=== PATIENT | female | born 1980 | race Caucasian/White ===

== ENCOUNTER → 2021-04-25 | Outpatient (CLI) | payer OTHER ==
--- NOTE | 2021-04-25 12:00 | XR ---
EXAMINATION TYPE: XR elbow complete RT DATE OF EXAM: 04/25/2021 CLINICAL HISTORY: Lifting injury TECHNIQUE: Frontal, lateral and oblique images of the right elbow are obtained. COMPARISON: None FINDINGS: There is no acute fracture/dislocation evident in the right elbow. No abnormal fat pad si gns are seen. The overlying soft tissue appears unremarkable. IMPRESSION: There is no acute fracture or dislocation in the right elbow.
== END | disposition home or self-care (01) ==
LOC: LABWHC1 09:52
PROVIDERS: ATTEND Internal Medicine
DX: M77.11 Lateral epicondylitis, right elbow (principal); R19.7 Diarrhea, unspecified; E11.40 Type 2 diabetes mellitus with diabetic neuropathy, unspecified
CPT/HCPCS: 87045; 87046; 87324; 87328; 87329; 87798

== ENCOUNTER → 2021-06-11 | Outpatient (CLI) | payer OTHER ==
[2021-06-11 10:09] VITALS: BP 114/72; PULSE 63; RESP 16; TEMP 98.4
--- NOTE | 2021-06-11 11:13 | P.HPOB ---
History of Present Illness H&P Date: 06/11/21 Chief Complaint: The patient is here for her routine gynecologic exam and ma mmogram. This is a 41-year-old with an LMP of 05/21/2021 who is status post tubal ligation. The patient is here to establish with this office. Her last pelvic exam was in 2019. She is complaining of slight discharge during the past 4 months. She describes it as a whitish thick discharge with a slight odor. She denies any vaginal or vulvar itching. She states she was last sexually active about 6 months ago with her and she is currently in the process of getting a divorce. She is otherwise without complaints. Menstrual periods are fairly regular every month. She denies hot flashes. Review of Systems The patient has lost 100 pounds over the last year with diet and exercise. She denies respiratory, cardiac, or G.I. problems. Past Medical History Past Medical History: Diabetes Mellitus, GERD/Reflux, Hyperlipidemia, Hypertension Additional Past Medical History / Comment(s): Type 2 diabetes and chronic hypertension not requiring medication after weight loss. Seasonal ALLERGIES and overactive bladder. 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 History of Any Multi-Drug Resistant Organisms: None Reported Past Surgical History: Section, Tubal Ligation Additional Past Surgical History / Comment(s): section 2 with a tubal ligation with her second one. Past Psychological History: Anxiety, Depression Smoking Status: Never smoker Past Alcohol Use History: None Reported Past Drug Use History: None Reported Additional History: She has been since 2001 and is in the process of a divorce. 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 - Past Family History Mother Family Medical History: No Reported History Additional Family Medical History / Comment(s): Maternal grandmother had ovarian cancer and 2 maternal aunts also had ovarian cancer. Father Family Medical History: Unable to Obtain Medications and Allergies Home Medications Medication Instructions Recorded Confirmed Type Anxiety And Stress Vitamin 2 tab PO HS 06/11/21 06/11/21 History Atorvastatin [Lipitor] 20 mg PO HS 06/11/21 06/11/21 History Biotin 10,000 mcg PO DAILY 06/11/21 06/11/21 History Cetirizine HCl 10 mg PO DAILY 06/11/21 06/11/21 History Cholecalciferol [Vitamin D3 (25 25 mcg PO DAILY 06/11/21 06/11/21 History Mcg = 1000 Iu)] Gabapentin 300 mg PO TID 06/11/21 06/11/21 History Ibuprofen 600 mg PO Q8H 06/11/21 06/11/21 History Ibuprofen 800 mg PO Q8H 06/11/21 06/11/21 History Magnesium Oxide 400 mg PO DAILY 06/11/21 06/11/21 History Mv,Calcium,Min/Iron/Folic/Vitk 1 each PO DAILY 06/11/21 06/11/21 History [One-A-Day Women's Complete Tab] Oxybutynin Chloride [Oxybutynin 5 mg PO DAILY 06/11/21 06/11/21 History Chloride ER] Pantoprazole [Protonix] 40 mg PO DAILY 06/11/21 06/11/21 History Primidone [Mysoline] 50 mg PO HS 06/11/21 06/11/21 History Vortioxetine Hydrobromide 10 mg PO DAILY 06/11/21 06/11/21 History [Trintellix] traZODone HCL 50 mg PO HS 06/11/21 06/11/21 History Allergies Allergy/AdvReac Type Severity Reaction Status Date / Time diphenhydramine Allergy Rapid Unverified 06/11/21 10:10 [From Benadryl] Heart Rate morphine Allergy Swelling Unverified 06/11/21 10:10 Exam Vital Signs Temp Pulse Resp BP Pulse Ox 06/11/21 10:05 98.4 F 63 16 114/72 99 Intake and Output 06/10/21 06/11/21 06/11/21 22:59 06:59 14:59 Other: Weight 80.286 kg Height 5 feet 0 inches, weight 177 pounds, BMI 34.6. This is a well-developed well-nourished white female who is alert and oriented times 3 in no acute distress. HEENT: Within normal limits. NECK: Supple without mass or thyromegaly. CHEST AND LUNGS: Clear to auscultation. HEART: Regular rate and rhythm. BREASTS: Are without mass or discharge. AXILLARY EXAM: Negative for adenopathy. BACK: Negative for CVA tenderness. ABDOMEN: Soft, nontender, without palpable masses. PELVIC EXAM: Normal external genitalia. Cervix and vagina appear normal. There is no unusual discharge. There is no odor noted. There is no evidence of prolapse. The uterus is midposition, nongravid size and nontender. There are no palpable adnexal masses or tenderness. RECTAL EXAM: negative for mass or tenderness and is negative for occult blood. EXTREMITIES: Nontender. IMPRESSION: 1. 41-year-old female status post tubal ligation with a four-month history of vaginal discharge with no significant physical findings on exam today. Differential diagnosis will include bacterial vaginosis, GC, Chlamydia, Tawnya vaginitis or physiologic discharge. PLAN: 1. Pap smear cotest was performed. 2. Self breast awareness was discussed with the patient. We have reviewed the symptoms of inflammatory breast cancer. 3. Screening mammogram will be done today. 4. Affirm vaginitis panel testing was obtained from the vagina. GC and Chlamydia testing was obtained from the cervix. 5. Osteoporosis prevention was discussed. I have stressed the importance of adequate calcium, vitamin D and regular exercise. Recommended amounts of calcium and vitamin D were also discussed. 6. STD prevention was discussed. I have stressed the importance of limiting sexual partners. I also recommended condom use if she is sexually active. 7. She has received the [employer] Covid vaccination. 8. She was advised to return in one year for her annual well woman exam and as needed.
[2021-06-12 17:50] LABS: Gardnerella Negative (Negative); Source Vagina; Trichomonas Negative (Negative)
== END | disposition home or self-care (01) ==
LOC: WWCWWP 09:58
PROVIDERS: ATTEND Obstetrics & Gynecology
DX: Z12.31 Encounter for screening mammogram for malignant neoplasm of breast (principal); N89.8 Other specified noninflammatory disorders of vagina
CPT/HCPCS: 77067; 87480; 87491; 87510; 87591; 87660

== ENCOUNTER → 2021-08-28 | Outpatient (CLI) | payer OTHER ==
--- NOTE | 2021-08-29 15:41 | ECHOS ---
STRESS ECHOCARDIOGRAM INDICATIONS: Chest pain. BASELINE HEART RATE: 77 BASELINE BLOOD PRESSURE: 115/64 MAXIMUM HEART RATE: 157 MAXIMUM BLOOD PRESSURE: 179/49 85% MPHR: 150 100% MPHR: 177 METS: 9.5 MAXIMUM STAGE REACHED: 3 TOTAL EXERCISE TIME: 8:00 CLINICAL INFORMATION: Baseline EKG shows sinus rhythm, normal axis, normal intervals. Patient exercised on Enmanuel protocol for a total of 8 minutes, achieving 9 METS, 89% of predicted maximal heart rate, without chest pain or diagnostic ST-segment depression. Baseline echo shows normal left ventricular size, wall motion, systolic function. Post exercise there is normal hyperdynamic response of all segments of myocardium noted. CONCLUSIONS: 1. Good exercise tolerance. 2. Negative stress test by EKG criteria. 3. Negative stress echo. MMELLAL / IJN: [id number] /
== END | disposition home or self-care (01) ==
LOC: RADNMMAIN 10:00
PROVIDERS: ATTEND Internal Medicine
DX: R07.89 Other chest pain (principal)
CPT/HCPCS: 93351

== ENCOUNTER → 2022-02-11 | Outpatient (CLI) | payer OTHER ==
--- NOTE | 2022-02-11 13:04 | MR ---
EXAMINATION TYPE: MR knee RT wo con DATE OF EXAM: 02/11/2022 COMPARISON: Outside radiograph 02/04/2022 HISTORY: 41 year-old female right knee pain after fall, hx of fx foot TECHNIQUE: Multiplanar, multisequence imaging of the right knee is performed without IV contrast. FINDINGS: The ACL, PCL, MCL, and LCL complex are intact. The medial and lateral menisci are intact. Mild cartilage irregularity along the mid weightbearing aspect of the medial compartment. More modera te loss along the mid peripheral aspect of the medial compartment. Subtle underlying marrow edema luis f ng the peripheral lip of the medial tibial plateau. Additional moderate irregular cartilage fraying mid patella and lateral patellar facet. Extensor mechanism is intact but with areas of increased signal in both the quadriceps insertion and deep fibers of the proximal patellar tendon. Mild edema within the suprapatellar fat pad. Small knee joint effusion which can be physiologic. No s izable Medellin's cyst. Nonspecific anterior soft tissue swelling. Normal popliteal artery anatomy and muscle bulk. Prominent red marrow reconversion which can be seen in setting of anemia, obesity, smoking, chronic d isease. IMPRESSION: 1. Small area of moderate cartilage loss along the mid peripheral aspect of the medial compartment. S ome subtle underlying reactive marrow signal change. 2. Additional moderate irregular cartilage fraying mid patella and lateral patellar facet. 3. No cruciate/collateral ligament or meniscal tear seen. 4. Mild insertional quadriceps tendinosis and proximal patellar tendinosis. 5. Some edema within the suprapatellar fat pad is nonspecific but may be seen in the setting of fat p ad impingement syndrome. Clinically correlate.
== END | disposition home or self-care (01) ==
LOC: RADMRIMAIN 11:01
PROVIDERS: ATTEND Orthopaedic Surgery
DX: M25.561 Pain in right knee (principal)

== ENCOUNTER → 2022-03-27 | Day surgery (SDC) | payer OTHER ==
--- NOTE | 2022-03-26 13:58 | HP ---
HISTORY AND PHYSICAL REASON FOR ADMISSION: Surgery 03/27/2022 HISTORY OF PRESENT ILLNESS: Alexandra Asencio is a 41-year-old patient seen with progressive right knee pain. We discussed options for treatment. She elected to proceed with right knee arthroscopy. Consent is obtained. PAST MEDICAL HISTORY: Noncontributory. PAST SURGICAL HISTORY: section, cholecystectomy. DAILY MEDICATIONS: Ibuprofen. ALLERGIES: BENADRYL, MORPHINE. SOCIAL HISTORY: She denies tobacco use. PHYSICAL EVALUATION OF THE RIGHT KNEE: Range of motion 0-125. Mild effusion. Tenderness medial joint line. Positive medial Yang's. Ligaments stable. Hip rotation without pain. Distal neurovascular exam is intact. RADIOGRAPHS: Right knee radiographs reveal no obvious abnormality. MRI of the right knee revealed medial compartment cartilage loss and fat pad impingement syndrome. IMPRESSION: 1. Internal derangement right knee with osteochondral tear. 2. Right knee fat pad impingement. PLAN: Right knee arthroscopy with chondroplasty, partial synovectomy and debridement. MMODL / IJN: [id number] /
[~2022-03-27] MED LIST: BUPIVACAINE (PF) 0.25% 30 ML VIAL ONE; DEXAMETHASONE SOD PHOSPHATE 4 MG/ML 1 ML VIAL ONE; HYDROcodone/APAP 5-325MG 1 EACH TAB ONE; LIDOCAINE 2% INJ 20 MG/ML (2 ML VIAL) ONE; MIDAZOLAM 2 MG/2 ML VIAL ONE; ONDANSETRON 4 MG/2 ML VIAL ONE; PROPOFOL 10 MG/ML 20 ML VIAL IV ONE; SODIUM CHLORIDE 0.9% 1,000 ML BAG ONE; SODIUM CHLORIDE 0.9% 100 ML BAG ONE; ceFAZolin 1,000 MG VIAL ONE; fentaNYL (PF) 50 MCG/ML 2 ML AMP ONE
[2022-03-27 14:50] LABS: Glucose,Whole Blood 96 mg/dL (75-99)
--- NOTE | 2022-03-27 14:55 | P.OP ---
Date of Procedure: 03/27/22 Preoperative Diagnosis: Internal derangement right knee Postoperative Diagnosis: 1. Tear medial meniscus right knee 2. Reactive synovitis medial, lateral and suprapatellar compartments right knee Procedure(s) Performed: 1. Arthroscopic partial medial meniscectomy right knee 2. Arthroscopic partial synovectomy medial, lateral and suprapatellar compartments right knee Anesthesia: ROMEOA, local Surgeon: Amaduo Almaraz Estimated Blood Loss (ml): 7 Pathology: none sent Condition: stable Disposition: PACU Indications for Procedure: 41-year-old patient seen with progressive right knee pain. After having treatment options discussed, she elected to proceed with arthroscopy Operative Findings: see description of procedure Description of Procedure: Patient was taken to the operative suite. Patient underwent a general a nesthetic by the department of anesthesia. Patient was given preoperative antibiotics. The right lower extremity was placed in a well-padded arthroscopic leg holland. The right leg was prepped and draped in the normal sterile orthopedic fashion. A lateral parapatellar and suprapatellar incision was made. Trochars were inserted. Arthroscopy was initiated. Suprapatellar pouch revealed diffuse thick reactive synovitis. The patellofemoral joint appeared to articulate congruently. There was grade 1 chondromalacia with no tears present. The scope was guided into the medial gutter. No loose bodies or plica were identified. The scope was then guided into the medial compartment. A medial parapatellar incision was made. Trocar inserted followed by probe. There was a radial tear posterior medial meniscus. There were mild grade 1 chondromalacia changes of the medial femoral condyle. There was some thick reactive synovitis anteriorly. I performed a partial medial meniscectomy getting down to stable meniscal tissue. I performed a partial synovectomy decompressing reactive synovitis. The residual meniscus was stable. There was good decompression of the synovitis. Scope and probe were then guided into the intercondylar notch. Cruciates were identified, probed and found to be stable. The scope and probe were then guided into lateral compartment. Lateral meniscus was probed and was found to be stable. There was no chondromalacia involving lateral compartment. There was some reactive synovitis anteriorly. I introduced a motorized shaver and performed a partial synovectomy. The shaver was removed. There was good decompression of the synovitis. The scope was in guided back into the suprapatellar compartment. I introduced a motorized shaver into the super womack llar compartment. I performed a partial synovectomy. The shaver was removed. There was good decompression of synovitis. I took one more look around the entire knee, no residual debris. Instruments were now removed from the joint. The joint was infiltrated with .25% Marcaine. Steri-Strips were applied to the portal sites. Sterile dressings were applied. The patient was placed into a SHAHRAM hose. No tourniquet was utilized. The patient was awakened, transferred to a bed and taken to recovery stable satisfactory condition.
== END | disposition home or self-care (01) ==
LOC: OR 10:21
PROVIDERS: ATTEND Orthopaedic Surgery
DX: M23.203 Derangement of unspecified medial meniscus due to old tear or injury, right knee (principal); M65.861 Other synovitis and tenosynovitis, right lower leg; M17.10 Unilateral primary osteoarthritis, unspecified knee; K21.9 Gastro-esophageal reflux disease without esophagitis; Z79.1 Long term (current) use of non-steroidal anti-inflammatories (NSAID); Z90.49 Acquired absence of other specified parts of digestive tract; Z98.891 History of uterine scar from previous surgery; Z79.899 Other long term (current) drug therapy; Z88.8 Allergy status to other drugs, medicaments and biological substances; Z88.5 Allergy status to narcotic agent
CPT/HCPCS: 81025; 29881; 29876; J2250; J1100; J0690; J3010; J2704; J2001

== ENCOUNTER → 2022-08-15 | Outpatient (CLI) | payer OTHER ==
[2022-08-15 16:24] LABS: ALT 15 U/L (8-44); AST 20 U/L (13-35); African American GFR (CKD) 81.7 (60.0-200.0); Albumin 4.2 g/dL (3.8-4.9); Albumin/Globulin Ratio 1.68 (1.60-3.17); Alkaline Phosphatase 88 U/L (41-126); BUN/Creat Ratio 17.21 Ratio (12.00-20.00); Blood Urea Nitrogen 16.8 mg/dL (9.0-27.0); Calcium 8.9 mg/dL (8.7-10.3); Carbon Dioxide 23.7 mmol/L (20.0-27.5); Chloride 105 mmol/L (96-109); Chol/HDL Ratio 2.94 Ratio; Globulin 2.5 g/dL (1.6-3.3); Glucose 132 mg/dL (70-110); LDL Cholesterol,Calculated 78.5 mg/dL (0.0-131.0); Non-African American GFR(CKD) 70.5 (60.0-200.0); Potassium 4.5 mmol/L (3.5-5.5); Sodium 138 mmol/L (135-145); Total Protein 6.7 g/dL (6.2-8.2)
== END | disposition home or self-care (01) ==
LOC: LABWHC1 09:29
PROVIDERS: ATTEND Internal Medicine
DX: E11.9 Type 2 diabetes mellitus without complications (principal)
CPT/HCPCS: 36415; 80053; 80061; 82306; 83036; 84443

== ENCOUNTER → 2022-08-15 | Outpatient (CLI) | payer OTHER ==
[2022-08-15 15:17] LABS: Basophils # (A) 0.02 X 10*3/uL (0.00-0.10); Basophils % (A) 0.3 %; Eosinophils # (A) 0.31 X 10*3/uL (0.04-0.35); Eosinophils % (A) 4.6 %; HCT 39.2 % (37.2-46.3); HGB 13.5 g/dL (12.0-15.0); Immature Grans, Automated 0.3 %; Lymphocytes % (A) 22.3 %; MCH 31.1 pg (27.0-32.0); MCHC 34.4 g/dL (32.0-37.0); MCV 90.3 fL (80.0-97.0); Monocytes # (A) 0.43 X 10*3/uL (0.20-1.00); Monocytes % (A) 6.4 %; NRBC Per 100 WBC 0 /100 WBCS (0.0-0.0); Neutrophils # (A) 4.45 X 10*3/uL (1.80-7.70); Neutrophils % (A) 66.1 %; Platelet Count 223 X 10*3/uL (140-440); RBC 4.34 X 10*6/uL (4.10-5.20); RDW 12.1 % (11.5-14.5); WBC 6.73 X 10*3/uL (4.50-10.00)
[2022-08-15 16:22] LABS: Anion Gap 7.2 mmol/L (10.00-18.00); Carbon Dioxide 23.8 mmol/L (20.0-27.5); Potassium 4.5 mmol/L (3.5-5.5)
== END | disposition home or self-care (01) ==
LOC: LABPAT 09:31
PROVIDERS: ATTEND Orthopaedic Surgery Hand Surgery
DX: Z01.812 Encounter for preprocedural laboratory examination (principal); M77.11 Lateral epicondylitis, right elbow
CPT/HCPCS: 80051; 85025

== ENCOUNTER 2022-08-20 11:20 | Emergency (ER) | payer OTHER ==
[2022-08-20 12:36] VITALS: RESP 16; TEMP 98
--- NOTE | 2022-08-20 12:59 | XR ---
EXAMINATION TYPE: XR knee 4V RT DATE OF EXAM: 08/20/2022 12:55 PM INDICATION: Patient age:Female; 42 years old; Reason for study: fall right knee pain swelling; PHH. COMPARISON: MRI right knee 02/11/2022, right knee radiograph 02/04/2022. TECHNIQUE: The Right knee(s) was examined in AP, lateral, oblique, and sunrise projections. FINDINGS: No evidence of any acute osseous pathology, joint space narrowing, or joint effusion is n oted. Incidental fabella. Mild soft tissue edema. IMPRESSION: 1. No acute osseous pathology. 2. Mild soft tissue edema.
--- NOTE | 2022-08-20 13:33 | ED ---
Extremity Problem HPI - General Chief complaint: Extremity Problem,Nontraumatic Stated complaint: fall Time Seen by Provider: 08/20/22 13:10 Source: patient Mode of arrival: EMS Limitations: no limitations - History of Present Illness Initial comments: This 42-year-old female presents with complaint of right knee pain. She states that she walked out of the shower. There is some slippery floor and she apparently slipped and fell down multiple steps. This occurred just earlier today. She states that the pain is moderate in severity. She states that she cannot ambulate on her right leg. She also apparently just had arthroscopic surgery on her right knee earlier this year. She is unsure of the exact reason why. She denies any other injuries. There is no neck pain or head trauma or back pain. No other complaints or modifying factors. - Related Data Home Medications Medication Instructions Recorded Confirmed Anxiety And Stress Vitamin 2 tab PO HS 06/11/21 03/26/22 Atorvastatin [Lipitor] 20 mg PO HS 06/11/21 03/26/22 Biotin 10,000 mcg PO DAILY 06/11/21 03/26/22 Cetirizine HCl 10 mg PO DAILY PRN 06/11/21 03/26/22 Cholecalciferol [Vitamin D3 (25 25 mcg PO DAILY 06/11/21 03/26/22 Mcg = 1000 Iu)] Gabapentin 300 mg PO TID 06/11/21 03/26/22 Magnesium Oxide 400 mg PO DAILY 06/11/21 03/26/22 Mv,Calcium,Min/Iron/Folic/Vitk 1 each PO DAILY 06/11/21 03/26/22 [One-A-Day Women's Complete Tab] Oxybutynin Chloride [Oxybutynin 5 mg PO DAILY 06/11/21 03/26/22 Chloride ER] Pantoprazole [Protonix] 40 mg PO DAILY 06/11/21 03/26/22 Primidone [Mysoline] 50 mg PO HS 06/11/21 03/26/22 Vortioxetine Hydrobromide 10 mg PO DAILY 06/11/21 03/26/22 [Trintellix] traZODone HCL 150 mg PO HS 06/11/21 03/26/22 Previous Rx's Medication Instructions Recorded HYDROcodone/APAP 5-325MG [[place] 1 tab PO Q6HR PRN #15 tab 03/27/22 5-325] traMADol HCl [Ultram] 50 - 100 mg PO Q6H PRN #15 tab 08/20/22 Allergies Allergy/AdvReac Type Severity Reaction Status Date / Time diphenhydramine Allergy Rapid Verified 08/20/22 12:36 [From Benadryl] Heart Rate morphine Allergy Swelling Verified 08/20/22 12:36 Review of Systems ROS Statement: Those systems with pertinent positive or pertinent negative responses have been documented in the HPI. ROS Other: All systems not noted in ROS Statement are negative. Past Medical History Past Medical History: Diabetes Mellitus, GERD/Reflux, Hyperlipidemia, Hypertension Additional Past Medical History / Comment(s): Type 2 diabetes and chronic hypertension not requiring medication after weight loss. Seasonal ALLERGIES and overactive bladder. 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 History of Any Multi-Drug Resistant Organisms: None Reported Past Surgical History: Section, Tubal Ligation Additional Past Surgical History / Comment(s): section 2 with a tubal ligation with her second one. Past Psychological History: Anxiety, Depression Smoking Status: Never smoker - Past Family History Mother Family Medical History: No Reported History Additional Family Medical History / Comment(s): Maternal grandmother had ovarian cancer and 2 maternal aunts also had ovarian cancer. Father Family Medical History: Unable to Obtain General Exam - General Exam Comments Initial Comments: GENERAL: The patient is well nourished and well hydrated. VITAL SIGNS: Heart rate, blood pressure, respiratory rate reviewed as recorded in nurse's notes. EYES: Pupils are round and reactive. Extraocular movements are intact. No conjunctival / lid redness or swelling. ENT: No external evidence of injury, swelling, or ecchymosis. Airway is patent. Throat is clear. NECK: Nontender. No swelling or evidence of injury. No subcutaneous emphysema. Trachea is midline. No thyroid mass. HEART: Regular rate and rhythm. Good peripheral pulses. LUNGS/CHEST: Breath sounds clear and equal bilaterally. No rales, rhonchi, or wheezes. No ecchymosis, subcutaneous emphysema, or tenderness. ABDOMEN: Abdomen soft without tenderness. No palpable masses or organomegaly. No peritoneal signs. No abdominal wall swelling or ecchymosis. EXTREMITIES: There is minimal to moderate tenderness noted in the joint line and to the inferior portion of the patella. There is mild effusion noted to the right knee. There is negative valgus, varus, Lockman and drawer noted. There is a positive Yang's test. Normal muscle tone and function. No thoracolumbar tenderness. NEUROLOGIC: Sensation is grossly intact. Cranial nerve exam reveals face is symmetrical, tongue is midline, speech is clear. SKIN: No abrasions or ecchymosis is noted. No induration or masses noted. PSYCHIATRIC: Alert and oriented. Appropriate behavior and judgment. Limitations: no limitations Course Vital Signs 08/20/22 08/20/22 12:32 14:41 Temperature 98 F 98 F Pulse Rate 70 78 Respiratory 16 16 Rate Blood Pressure 138/67 128/78 O2 Sat by Pulse 99 98 Oximetry Medical Decision Making - Medical Decision Making The patient was seen and examined. An x-ray was taken of the right knee. No fracture or acute osseous abnormality is identified. It is felt as though she likely could have a meniscal tear. She is placed in a knee immobilizer and is dispensed crutches. She does have an orthopedic physician and she is instructed to follow-up with them as soon as possible. Ultram as prescribed. Return parameters are discussed. Disposition Clinical Impression: Knee sprain Disposition: HOME SELF-CARE Condition: Good Instructions (If sedation given, give patient instructions): Knee Sprain (ED), Crutch Instructions (ED), Knee Immobilizer (ED) Prescriptions: traMADol HCl [Ultram] 50 - 100 mg PO Q6H PRN #15 tab PRN Reason: Pain Is patient prescribed a controlled substance at d/c from ED?: Yes When asked, does pt state using other controlled substances?: No If prescribed controlled substance>3 days was MAPS reviewed?: Prescribed <3 Days Referrals: Nitesh Pollack MD [Primary Care Provider] - 1-2 days Amadou Almaraz DO [Doctor of Osteopathic Medicine] - 1-2 days Time of Disposition: 13:30
[2022-08-20 14:42] VITALS: BP 128/78; PULSE 78
== END 2022-08-20 14:41 | disposition home or self-care (01) ==
LOC: EC 11:20
DX: S83.91XA Sprain of unspecified site of right knee, initial encounter (principal); E11.9 Type 2 diabetes mellitus without complications; E78.5 Hyperlipidemia, unspecified; I10 Essential (primary) hypertension; K21.9 Gastro-esophageal reflux disease without esophagitis; Z79.899 Other long term (current) drug therapy; Z88.6 Allergy status to analgesic agent; Z88.8 Allergy status to other drugs, medicaments and biological substances
CPT/HCPCS: 73564; 99284; L1830

== ENCOUNTER 2022-08-27 10:37 | Day surgery (SDC) | payer OTHER ==
[2022-08-25 14:25] VITALS: BMI 33.2
--- NOTE | 2022-08-25 15:13 | P.HPOR ---
History of Present Illness H&P Date: 08/25/22 Chief Complaint: Right lateral epicondylitis Subjective: This is a 42 year old female that presents today for initial evaluation regarding over a year long history of right lateral epicondylitis. She has seen Dr. Almaraz who has performed several steroid injections which help but last now only approximately 1 month. 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 She has pain with repetitive wrist extension. Physical Examination: RUE: AIN/PIN/Radial/Ulnar/Median motor intact. Radial/Ulnar/Median SILT. 2+/4 Radial/Ulnar pulses palpated. 5/5 APB, 5/5 FDI. Negative Finkelsteins, negative CMC grind, negative Durkan's compression. TTP over lateral epicondyle and pain with resisted wrist extension. Elbow ROM 0-130. Stable varus/valgus stress. Impression: 1.) Right lateral epicondylitis Plan: Diagnosis and treatment options were discussed with the patient. She has failed conservative treatment with multiple steroid injections, rest, anti- inflammatories and bracing. She wishes to pursue surgical treatment. Risks and benefits of surgery including bleeding, infection, damage to surrounding tissue, need for further surgery, residual numbness were discussed and the patient wished to go forward with surgery. She will be scheduled for a right lateral epicondylar debridement with extensor tendon release in the near future.I anticipate 2 weeks of of work post operatively. -Ramón Norman DO Orthopedic Hand/Upper Extremity Surgeon Past Medical History Past Medical History: Diabetes Mellitus, GERD/Reflux, Hyperlipidemia, Hypertension Additional Past Medical History / Comment(s): Recent right knee injury with continued pain, being monitored by Dr Almaraz. Type 2 Diabetes and chronic hypertension not requiring medication after weight loss. Seasonal allergies. Overactive bladder. Right tennis elbow. History of Any Multi-Drug Resistant Organisms: None Reported Past Surgical History: Section, Cholecystectomy, Orthopedic Surgery, Tubal Ligation Additional Past Surgical History / Comment(s): Section X2, right knee arthoscopy. Past Anesthesia/Blood Transfusion Reactions: No Reported Reaction Past Psychological History: Anxiety, Depression Smoking Status: Never smoker Past Alcohol Use History: None Reported Past Drug Use History: None Reported - Past Family History Mother Family Medical History: No Reported History Additional Family Medical History / Comment(s): Maternal grandmother had ovarian cancer and 2 maternal aunts also had ovarian cancer. Father Family Medical History: Unable to Obtain Medications and Allergies Home Medications Medication Instructions Recorded Confirmed Type Anxiety And Stress Vitamin 2 tab PO HS 06/11/21 08/25/22 History Atorvastatin [Lipitor] 20 mg PO HS 06/11/21 08/25/22 History Biotin 10,000 mcg PO DAILY 06/11/21 08/25/22 History Cetirizine HCl 10 mg PO DAILY PRN 06/11/21 08/25/22 History Cholecalciferol [Vitamin D3 (25 25 mcg PO DAILY 06/11/21 08/25/22 History Mcg = 1000 Iu)] Gabapentin 300 mg PO TID 06/11/21 08/25/22 History Magnesium Oxide 400 mg PO DAILY 06/11/21 08/25/22 History Mv,Calcium,Min/Iron/Folic/Vitk 1 each PO DAILY 06/11/21 08/25/22 History [One-A-Day Women's Complete Tab] Oxybutynin Chloride [Oxybutynin 5 mg PO DAILY 06/11/21 08/25/22 History Chloride ER] Pantoprazole [Protonix] 40 mg PO QAM 06/11/21 08/25/22 History Primidone [Mysoline] 50 mg PO HS 06/11/21 08/25/22 History Vortioxetine Hydrobromide 20 mg PO QAM 06/11/21 08/25/22 History [Trintellix] traZODone HCL 150 mg PO HS 06/11/21 08/25/22 History traMADol HCl [Ultram] 50 - 100 mg PO Q6H PRN #15 tab 08/20/22 08/25/22 Rx Ibuprofen [Motrin Ib] 200 mg PO DIRECTED PRN 08/25/22 08/25/22 History busPIRone HCL [Buspar] 30 mg PO BID 08/25/22 08/25/22 History Allergies Allergy/AdvReac Type Severity Reaction Status Date / Time diphenhydramine Allergy Rapid Verified 08/25/22 14:06 [From Benadryl] Heart Rate morphine Allergy Swelling Verified 08/25/22 14:06 Physical Examination Osteopathic Statement: *. No significant issues noted on an osteopathic structural exam other than those noted in the History and Physical/Consult.
[~2022-08-27 10:37] MED LIST changes: -BUPIVACAINE (PF) 0.25% 30 ML VIAL ONE; -DEXAMETHASONE SOD PHOSPHATE 4 MG/ML 1 ML VIAL ONE; -HYDROcodone/APAP 5-325MG 1 EACH TAB ONE; +HYDROmorphone 0.5 MG/0.5 ML SYRINGE IVP PRN; +LACTATED RINGERS 1,000 ML IV SCH; -LIDOCAINE 2% INJ 20 MG/ML (2 ML VIAL) ONE; -MIDAZOLAM 2 MG/2 ML VIAL ONE; +ONDANSETRON 4 MG/2 ML VIAL IVP ONE; -ONDANSETRON 4 MG/2 ML VIAL ONE; -PROPOFOL 10 MG/ML 20 ML VIAL IV ONE; +Pre Op ABX Message 1 EACH MISC MISCELLANE ONE; -SODIUM CHLORIDE 0.9% 1,000 ML BAG ONE; -SODIUM CHLORIDE 0.9% 100 ML BAG ONE; -ceFAZolin 1,000 MG VIAL ONE; -fentaNYL (PF) 50 MCG/ML 2 ML AMP ONE
[2022-08-27] MEDS ORDERED: LIDOCAINE 1% (10MG/ML) FOR IV START INTRADERMA ONE (12:21)
[2022-08-27 12:26] LABS: Glucose,Whole Blood 94 mg/dL (70-110)
[2022-08-27] MEDS ORDERED: KETOROLAC 15 MG/ML 1 ML VIAL ONE (13:16)
[2022-08-27] MEDS ORDERED: MIDAZOLAM 2 MG/2 ML VIAL ONE (13:16)
[2022-08-27] MEDS ORDERED: LIDOCAINE 2% INJ 20 MG/ML (2 ML VIAL) ONE (13:16)
[2022-08-27] MEDS ORDERED: fentaNYL (PF) 50 MCG/ML 2 ML AMP ONE (13:16)
[2022-08-27] MEDS ORDERED: HYDROmorphone (PF) 1 MG/ML ONE (13:16)
[2022-08-27] MEDS ORDERED: SUCCINYLCHOLINE CHLORIDE 200 MG/10 ML VIAL IV ONE (13:16)
[2022-08-27] MEDS ORDERED: PROPOFOL 10 MG/ML 20 ML VIAL IV ONE (13:16)
[2022-08-27] MEDS ORDERED: BUPIVACAINE (PF) 0.25% 30 ML VIAL SQ ONE ×2 (13:51)
[2022-08-27 14:18] VITALS: RESP 16; TEMP 97
[2022-08-27] MEDS ORDERED: HYDROcodone/APAP 5-325MG 1 EACH TAB ONE (15:07)
[2022-08-27] MEDS ORDERED: HYDROcodone/APAP 5-325MG 1 EACH TAB PO ONE (15:08)
[2022-08-27 15:14] VITALS: BP 114/78; PULSE 84
--- NOTE | 2022-08-27 20:43 | P.OP ---
Date of Procedure: 08/27/22 Preoperative Diagnosis: Right lateral epicondylitis Postoperative Diagnosis: Right lateral epicondylitis Procedure(s) Performed: 1.) Right lateral epicondylar debridement Anesthesia: ROMEOA Surgeon: Ramón Norman Generator Rebuilder #1: Johnathan Colin Estimated Blood Loss (ml): 5 Pathology: none sent Condition: stable Disposition: PACU Description of Procedure: This is a 42 year old female who presents today for surgical intervention for right lateral epicondylitis that has failed extensive conservative treatment. Risks and benefits of surgery were discussed with the patient including bleeding, damage to surrounding tissue, infection, need for further surgery as well as risks of anesthesia including pulmonary embolism and even and the patient wished to proceed with surgical intervention. The patient was seen in the pre-operative area by myself. Consent and H&P were completed and updated. The correct extremity was marked in the pre-operative area by myself and all other questions were answered. Operative Narrative: The patient was brought to the operating room by the department of anesthesia. They remained on the portable stretcher and a rolling hand table was brought to the side of the operative extremity. Pre-operative time out was performed indicating the correct patient, procedure and laterality. All in the room agreed. Pre-operative antibiotics were given prior to skin incision. The patient was then drifted off to sleep by the department of anesthesia. A 50:50 mixture of 1% lidocaine and 0.5 % bupivicaine was then injected around the area of the lateral epicondyle, 10cc total. A nonsterile tourniquet was then applied to the operative extremity and the left upper extremity was then prepped and draped in normal sterile fashion. The operative extremity was the exsanguinated with an esmarch bandage and the tourniquet was inflated to 250mmHg. A longitudinal skin incision was made with a 15 blade scalpel overlying the lateral epicondyle with extension distally. Blunt dissection was taken down to the common extensor tendon origin. This was sharply incised longitudinal and sen retractors were then placed deep to the common extensor tendon which revealed the extensively inflamed and degenerative ECRB tendon origin. The degenerative tissue was then sharply excised. The lateral epicondyle was the decorticated with a rongeur down to bleeding bone taking care to remain anterior to the origin of the LUCL. The wound was then irrigated. A side to side tendon repair was performed utilizing 3-0 Vicryl suture incorporating the common extensor tendon. The elbow as then stressed with varus and valgus stress and was stable at all degrees of motion. Closure was then performed with 4-0 monocryl suture. A 50:50 mixture of 1% lidocaine and 0.5 % bupivicaine was then injected around the area of the lateral epicondyle, 20cc total. A sterile dressing consisting of mastisol, steri strips, 4x4s, webril and an veronica wrap and sling was applied. Tourniquet was let down and the hand had immediate normal perfusion. The patient was then woken by the department of anesthesia and transferred to PACU in stable condition. Johnathan NARANJO was present for the case to assist in major portions of the procedure and protection of vital neurovascular structures. Ramón Norman D.O. Orthopedic Hand/Upper Extremity Surgeon
== END 2022-08-27 15:45 | disposition home or self-care (01) ==
LOC: OR 10:37
PROVIDERS: ATTEND Orthopaedic Surgery Hand Surgery
DX: M77.11 Lateral epicondylitis, right elbow (principal); E11.9 Type 2 diabetes mellitus without complications; K21.9 Gastro-esophageal reflux disease without esophagitis; E78.5 Hyperlipidemia, unspecified; I10 Essential (primary) hypertension; Z98.51 Tubal ligation status; Z90.49 Acquired absence of other specified parts of digestive tract; Z98.891 History of uterine scar from previous surgery; F41.9 Anxiety disorder, unspecified; F32.A Depression, unspecified; Z80.41 Family history of malignant neoplasm of ovary; Z79.1 Long term (current) use of non-steroidal anti-inflammatories (NSAID); Z79.899 Other long term (current) drug therapy; Z88.8 Allergy status to other drugs, medicaments and biological substances
CPT/HCPCS: 24358; J2250; J0330; J2405; J3010; J1170; J1885; J2704; J2001

== ENCOUNTER → 2022-09-24 | Outpatient (CLI) | payer OTHER ==
--- NOTE | 2022-09-24 16:06 | MM ---
Reason for Exam: Screening (asymptomatic). Last mammogram was performed 1 year(s) and 3 month(s) ago. Patient History: Menarche at age 10. First Full-Term at age 21. Premenopausal. Patient has history of breast feeding. Last menstrual period: 09/16/2022 Risk Values: Latisha 5 year model risk: 0.7%. NCI Lifetime model risk: 8.7%. Prior Study Comparison: 11/17/2019 Screening Mammogram, [facility]. 06/11/2021 Bilateral Screening Mammogram, [facility]. Tissue Density: The breast tissue is heterogeneously dense. This may lower the sensitivity of mammography. Findings: Analyzed By CAD. There is no suspicious group of microcalcifications or new suspicious mass in either breast. Overall Assessment: Negative, BI-RAD 1 Management: Screening Mammogram of both breasts in 1 year. A clinical breast exam by your physician is recommended on an annual basis and results should be correlated with mammographic findings. [facility] will attempt to contact patient to return for supplemental views and ultrasound if indicated. Electronically signed and approved by: Steven Medina DO
== END | disposition home or self-care (01) ==
LOC: RADMAMWWP 08:43
PROVIDERS: ATTEND Obstetrics & Gynecology
DX: Z12.31 Encounter for screening mammogram for malignant neoplasm of breast (principal)
CPT/HCPCS: 77067

== ENCOUNTER → 2022-11-21 | Outpatient (CLI) | payer OTHER ==
--- NOTE | 2022-11-22 05:05 | MR ---
EXAMINATION TYPE: MR brain wo/w con DATE OF EXAM: 11/21/2022 COMPARISON: None HISTORY: Dizziness, benign paroxysmal positional vertigo of right ear. CONTRAST: Standard multiplanar, multisequence MRI departmental protocol images were obtained without contrast a nd with 9 mL intravenous Gadavist gadolinium contrast. Diffusion images show no evidence of an acute infarct. Ventricles have normal size. There is no mass effect nor midline shift. No sign of intracranial hemorrhage. The de dios and white matter structures harris ve fairly normal signal pattern. No evidence of cerebral edema. Brainstem is intact. Sella turcica is normal. Corpus callosum appears normal. No evidence of orbital mass. Contrast images show normal enhancement of the venous sinuses. There is no pathologic enhancement. No evidence of mastoiditis. No evidence of posterior fossa mass. Internal auditory canals appear normal . IMPRESSION: Normal MRI scan of the brain.
== END | disposition home or self-care (01) ==
LOC: RADMRIMAIN 14:12
PROVIDERS: ATTEND Internal Medicine
DX: H81.11 Benign paroxysmal vertigo, right ear (principal)
CPT/HCPCS: 70553; A9585

== ENCOUNTER → 2023-11-23 | Outpatient (CLI) | payer OTHER ==
[2023-11-23 15:02] LABS: Basophils # (A) 0.03 X 10*3/uL (0.00-0.10); Basophils % (A) 0.4 %; Eosinophils # (A) 0.48 X 10*3/uL (0.04-0.35); Eosinophils % (A) 6.6 %; HCT 40.8 % (37.2-46.3); HGB 13.8 g/dL (12.0-15.0); Lymphocytes % (A) 24.7 %; MCH 29.9 pg (27.0-32.0); MCHC 33.8 g/dL (32.0-37.0); MCV 88.3 FL (80.0-97.0); Mean Platelet Volume 10.3 FL (9.5-12.2); Monocytes % (A) 6.9 %; NRBC Per 100 WBC 0 X 10*3/uL (0.00-0.01); Neutrophils # (A) 4.44 X 10*3/uL (1.80-7.70); Platelet Count 262 X 10*3/uL (140-440); RBC 4.62 X 10*6/uL (4.10-5.20); RDW 12.3 % (11.5-14.5); WBC 7.28 X 10*3/uL (4.50-10.00)
[2023-11-23 15:07] LABS: Blood Urea Nitrogen 17.2 mg/dL (9.0-27.0); Calcium 9.3 mg/dL (8.7-10.3); Carbon Dioxide 25.6 mmol/L (21.6-31.8); Chloride 104 mmol/L (96-109); Glucose 117 mg/dL (70-110); Potassium 4.8 mmol/L (3.5-5.5); Sodium 140 mmol/L (135-145)
== END | disposition home or self-care (01) ==
LOC: LABPAT 09:09
PROVIDERS: ATTEND Orthopaedic Surgery Hand Surgery
DX: Z01.812 Encounter for preprocedural laboratory examination (principal); M65.311 Trigger thumb, right thumb
CPT/HCPCS: 80048; 85025

== ENCOUNTER 2023-12-09 07:41 | Day surgery (SDC) | payer OTHER ==
--- NOTE | 2023-12-07 15:30 | P.HPOR ---
History of Present Illness H&P Date: 12/07/23 Subjective: This is a 43 year old female that presents today for follow up evaluation regarding a several month history of right thumb pain with associated locking, catching and clicking. 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 It is worse right when she wakes up from sleep in the morning and often she can't flex the thumb. She denies any numbness or tingling. [facility] but her symptoms have returned. Physical Examination: RUE: AIN/PIN/Radial/Ulnar/Median motor intact. Radial/Ulnar/Median SILT. 2+/4 Radial/Ulnar pulses palpated. 5/5 APB, 5/5 FDI. Negative Finkelsteins, negative CMC grind, negative Durkan's compression. TTP over right thumb A1 cleo with locking, catching and clicking. Impression: 1.) Right trigger thumb Plan: Diagnosis and treatment options were discussed with the patient. She would like to proceed with a right thumb A1 cleo release. Risks and benefits of surgery including bleeding, infection, damage to surrounding tissue, need for further surgery, residual numbness were discussed and the patient wished to go forward with surgery. The patient was agreeable with this plan. CC: Nitesh Pollack DO -Ramón Norman DO Orthopedic Hand/Upper Extremity Surgeon Past Medical History Past Medical History: Diabetes Mellitus, GERD/Reflux, Hyperlipidemia, Hypertension Additional Past Medical History / Comment(s): Type 2 diabetes and chronic hypert ension not requiring medication after weight loss. Seasonal ALLERGIES and overactive bladder. CHRONIC DIARRHEA in past History of Any Multi-Drug Resistant Organisms: None Reported Past Surgical History: Section, Orthopedic Surgery, Tubal Ligation, Uterine Ablation Additional Past Surgical History / Comment(s): section 2 with a tubal ligation with her second one., RT KNEE SX, RT TENNIS ELBOW SX, COLONOSCOPY, Past Anesthesia/Blood Transfusion Reactions: No Reported Reaction Smoking Status: Never smoker - Past Family History Mother Family Medical History: No Reported History Additional Family Medical History / Comment(s): Maternal grandmother had ovarian cancer and 2 maternal aunts also had ovarian cancer. Father Family Medical History: Unable to Obtain Medications and Allergies Home Medications Medication Instructions Recorded Confirmed Type Cetirizine HCl 10 mg PO DAILY PRN 06/11/21 12/03/23 History Gabapentin 300 mg PO TID 06/11/21 12/03/23 History Magnesium Oxide 400 mg PO DAILY 06/11/21 12/03/23 History Oxybutynin Chloride [Oxybutynin 5 mg PO DAILY 06/11/21 12/03/23 History Chloride ER] Pantoprazole [Protonix] 40 mg PO HS 06/11/21 12/03/23 History Primidone [Mysoline] 50 mg PO HS 06/11/21 12/03/23 History Vortioxetine Hydrobromide 20 mg PO QAM 06/11/21 12/03/23 History [Trintellix] traZODone HCL 150 mg PO HS 06/11/21 12/03/23 History busPIRone HCL [Buspar] 30 mg PO BID 08/25/22 12/03/23 History Allergies Allergy/AdvReac Type Severity Reaction Status Date / Time diphenhydramine Allergy Rapid Verified 12/03/23 12:00 [From Sandy] Heart Rate morphine Allergy Swelling Verified 12/03/23 12:00 Physical Examination Osteopathic Statement: *. No significant issues noted on an osteopathic structural exam other than those noted in the History and Physical/Consult.
[~2023-12-09 07:41] MED LIST changes: -LACTATED RINGERS 1,000 ML IV SCH; +LIDOCAINE 1% (10MG/ML) FOR IV START INTRADERMA PRN; +MIDAZOLAM 2 MG/2 ML VIAL IV PRN; +MIDAZOLAM 2 MG/2 ML VIAL ONE; -ONDANSETRON 4 MG/2 ML VIAL IVP ONE; +PROPOFOL 10 MG/ML 20 ML VIAL IV ONE; +fentaNYL (PF) 50 MCG/ML 2 ML AMP ONE
[2023-12-09 08:07] VITALS: TEMP 98
[2023-12-09] MEDS: DEXAMETHASONE SOD PHOSPHATE 4 MG/ML 1 ML VIAL IV ONE (08:13)
[2023-12-09] MEDS: LACTATED RINGERS 1,000 ML IV SCH (08:13)
[2023-12-09] MEDS: ONDANSETRON 4 MG/2 ML VIAL IVP ONE (08:14)
[2023-12-09] MEDS: BUPIVACAINE (PF) 0.5% 30 ML VIAL SQ ONE ×2 (08:22→08:30)
[2023-12-09] MEDS: LIDOCAINE 2% INJ 20 MG/ML SQ ONE ×2 (08:22→08:30)
[2023-12-09 08:55] LABS: Glucose,Whole Blood 134 mg/dL (70-110)
[2023-12-09 09:43] VITALS: BP 123/74; PULSE 75; RESP 18
--- NOTE | 2023-12-09 11:35 | P.OP ---
Date of Procedure: 12/09/23 Preoperative Diagnosis: Right thumb trigger finger Postoperative Diagnosis: Right thumb trigger finger Procedure(s) Performed: Right thumb A1 cleo release Anesthesia: MAC Surgeon: Ramón Norman Supervisor Telephone Information #1: Johnathan Colin Estimated Blood Loss (ml): 0 Pathology: none sent Condition: stable Disposition: PACU Description of Procedure: This is a 43 year old female who presents today for a right thumb trigger finger A1 cleo release after having failed conservative treatment. Risks and benefits of surgery were discussed with the patient including bleeding, damage to surrounding tissue, infection, need for further surgery as well as risks of anesthesia including pulmonary embolism and even and the patient wished to proceed with surgical intervention. The patient was seen in the pre-operative area by myself. Consent and H&P were completed and updated. The correct extremity was marked in the pre-operative area by myself and all other questions were answered. Operative Narrative: The patient was brought to the operating room by the department of anesthesia. They remained on the portable stretcher and a rolling hand table was brought to the side of the operative extremity. Pre-operative time out was performed indicating the correct patient, procedure and laterality. All in the room agreed. Pre-operative antibiotics were given prior to skin incision. The patient was then drifted off to sleep by the department of anesthesia. MAC anesthesia was utilized and a 50:50 mixture of 1% Lidocaine and 0.5% bupivacaine was injected into the subcutaneous tissues of the palmar skin, 3 ccs total. A nonsterile tourniquet was then applied to the operative extremity and the operative upper extremity was then prepped and draped in normal sterile fashion. The operative extremity was the exsanguinated with an esmarch bandage and the tourniquet was inflated to 250mmHg. Transverse incision was made at the base of the thumb overlying the A1 cleo. Blunt dissection was taken down to the level of the A1 cleo. Ragnell retractors were placed both radially and ulnarly to protect neurovascular bundles. Littler tenotomy scissors were then used to release the A1 cleo from proximal to distal under direct visualization. Proximal fascial attachments were released. The tendon was then taken through range of motion and no locking or catching was appreciated. The wound was then closed with interrupted 4-0 nylon sutures in a horizontal mattress fashion. Sterile dressing consisting of adaptic, 4x4s, webril, and an veronica wrap was applied. Tourniquet was let down and the hand was immediately well perfused. The patient was then woken by the dep artment of anesthesia and transferred to PACU in stable condition. Johnathan NARANJO was present to assist in portions of the procedure. Ramón Norman D.O. Orthopedic Hand/Upper Extremity Surgeon
== END 2023-12-09 09:29 | disposition home or self-care (01) ==
LOC: OR 07:41
PROVIDERS: ATTEND Orthopaedic Surgery Hand Surgery
DX: M65.311 Trigger thumb, right thumb (principal); E11.9 Type 2 diabetes mellitus without complications; E78.5 Hyperlipidemia, unspecified; I10 Essential (primary) hypertension; K21.9 Gastro-esophageal reflux disease without esophagitis; Z88.8 Allergy status to other drugs, medicaments and biological substances; Z79.84 Long term (current) use of oral hypoglycemic drugs; Z79.899 Other long term (current) drug therapy
CPT/HCPCS: 81025; 26055; J2001; J2250; J1100; J2405; J3010; J2704; J0665

== ENCOUNTER → 2024-01-28 | Outpatient (CLI) | payer OTHER ==
--- NOTE | 2024-01-31 15:05 | MM ---
Reason for Exam: Screening (asymptomatic). Last mammogram was performed 1 year(s) and 4 month(s) ago. Patient History: Menarche at age 10. First Full-Term at age 21. Premenopausal. Patient has history of breast feeding. Last menstrual period: 01/06/2024 Risk Values: Latisha 5 year model risk: 0.7%. NCI Lifetime model risk: 8.6%. Prior Study Comparison: 11/17/2019 Screening Mammogram, [facility]. 06/11/2021 Bilateral Screening Mammogram, [facility]. 09/24/2022 Bilateral MG screening mammo w CAD, [facility]. Tissue Density: The breasts are heterogeneously dense, which may obscure small masses. Findings: Analyzed By CAD. The pattern is symmetrical. Pattern appears stable. Focal asymmetries in the upper outer mid to posterior right breast, stable from comparison. No suspicious groups of microcalcifications, spiculated or lobular masses, architectural distortion or other secondary signs of malignancy are mammographically apparent. Overall Assessment: Benign, BI-RAD 2 Management: Screening Mammogram of both breasts in 1 year. A negative mammogram report should not preclude additional follow up of suspicious palpable abnormalities. Patient should continue monthly self breast exam. A clinical breast exam by your physician is recommended on an annual basis and results should be correlated with mammographic findings. Electronically signed and approved by: Ramiro Garcia D.O. Radiologis
== END | disposition home or self-care (01) ==
LOC: RADMAMWWP 11:25
PROVIDERS: ATTEND Internal Medicine
DX: Z12.31 Encounter for screening mammogram for malignant neoplasm of breast (principal)
CPT/HCPCS: 77067

== ENCOUNTER → 2024-03-15 | Outpatient (CLI) | payer OTHER ==
[2024-03-15 12:11] VITALS: BP 124/79; PULSE 76; RESP 17; TEMP 97.9
--- NOTE | 2024-03-15 13:05 | P.HPOB ---
History of Present Illness H&P Date: 03/15/24 Chief Complaint: The patient is here for her routine gynecologic exam. This is a 43-year-old with an LMP of 02/16/2024. The patient is status post tubal ligation. Her menstrual periods are regular every month and are short lasting 1 or 2 days. She is status post endometrial ablation several years ago for heavy bleeding and they have been light and short since then. She thinks she may be starting into a menopausal change because she does have occasional night sweats and has noticed a lower sex drive. She had a normal mammogram on 01/28/2024. Review of Systems She believes she has gained about 20 pounds over the past year. She denies respiratory, cardiac, or GI problems. She has noticed some right leg swelling. Past Medical History Past Medical History: Diabetes Mellitus, GERD/Reflux, Hyperlipidemia, Hypertension Additional Past Medical History / Comment(s): Type 2 diabetes and chronic hypertension not requiring medication after weight loss. Seasonal ALLERGIES and overactive bladder. CHRONIC DIARRHEA. Right foot neuropathy. History of Any Multi-Drug Resistant Organisms: None Reported Past Surgical History: Section, Orthopedic Surgery, Tubal Ligation, Uterine Ablation Additional Past Surgical History / Comment(s): section 2 with a tubal ligation with her second one., RT KNEE SX, RT TENNIS ELBOW SX, COLONOSCOPY, endometrial ablation. Past Psychological History: Anxiety, Depression Smoking Status: Never smoker Past Alcohol Use History: None Reported Past Drug Use History: None Reported Additional History: She is and has not seen anybody at this time. 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 - Past Family History Mother Family Medical History: No Reported History Additional Family Medical History / Comment(s): Maternal grandmother had uterine cancer and maternal aunt had some type of gynecologic cancer. Father Family Medical History: Unable to Obtain Medications and Allergies Home Medications Medication Instructions Recorded Confirmed Type Cetirizine HCl 10 mg PO DAILY PRN 06/11/21 03/15/24 History Gabapentin 300 mg PO TID 06/11/21 03/15/24 History Magnesium Oxide 400 mg PO DAILY 06/11/21 03/15/24 History Oxybutynin Chloride [Oxybutynin 5 mg PO DAILY 06/11/21 03/15/24 History Chloride ER] Pantoprazole [Protonix] 40 mg PO HS 06/11/21 03/15/24 History Primidone [Mysoline] 50 mg PO HS 06/11/21 03/15/24 History Vortioxetine Hydrobromide 20 mg PO QAM 06/11/21 03/15/24 History [Trintellix] traZODone HCL 150 mg PO HS 06/11/21 03/15/24 History busPIRone HCL [Buspar] 30 mg PO BID 08/25/22 03/15/24 History Allergies Allergy/AdvReac Type Severity Reaction Status Date / Time diphenhydramine Allergy Rapid Verified 03/15/24 11:56 [From Benadryl] Heart Rate morphine Allergy Swelling Verified 03/15/24 11:56 Exam Vital Signs Temp Pulse Resp BP Pulse Ox 03/15/24 11:57 97.9 F 76 17 124/79 99 Intake and Output 03/14/24 03/15/24 03/15/24 22:59 06:59 14:59 Other: Weight 95.254 kg Height 5 feet 0 inches, weight 210 pounds, BMI 41.0 This is a well-developed well-nourished white female who is alert and oriented times 3 in no acute distress. HEENT: Within normal limits. NECK: Supple without mass or thyromegaly. CHEST AND LUNGS: Clear to auscultation. HEART: Regular rate and rhythm. BREASTS: Are without mass or discharge. AXILLARY EXAM: Negative for adenopathy. BACK: Negative for CVA tenderness. ABDOMEN: Soft, nontender, without palpable masses. PELVIC EXAM: Normal external genitalia. Cervix and vagina appear normal. There is no unusual discharge. There is no evidence of prolapse. The uterus is midposition, nongravid size and nontender. There are no palpable adnexal masses or tenderness. RECTAL EXAM negative for mass or tenderness and is negative for occult blood. EXTREMITIES: Nontender. IMPRESSION: 1. 43-year-old premenopausal female who is status post tubal ligation, with normal gynecologic exam 2. Light menstrual periods following an endometrial ablation years ago. 3. Possible mild vasomotor symptoms and lower sex drive which may be related to symptoms indicating the start of a perimenopausal change. PLAN: 1. Pap smear was deferred since she had a negative Pap smear cotest on 06/11/2021. 2. Self breast awareness was discussed with the patient. We have also discussed symptoms associated with inflammatory breast cancer. 3. Screening mammogram was done on 01/28/2024 and was benign. She will repeat this after 1 year. 4. Osteoporosis prevention was discussed. I have stressed the importance of adequate calcium, vitamin D and regular exercise. Recommended amounts of calcium and vitamin D were also discussed. 5. She has done Cologuard testing through her PCP. 6. She was advised to return in one year for her annual well woman exam.
== END ==
LOC: WWCWWP 11:55
PROVIDERS: ATTEND Obstetrics & Gynecology
DX: Z78.0 Asymptomatic menopausal state (principal); Z98.51 Tubal ligation status; Z88.8 Allergy status to other drugs, medicaments and biological substances; Z88.1 Allergy status to other antibiotic agents

== ENCOUNTER → 2024-04-21 | Outpatient (CLI) | payer OTHER ==
--- NOTE | 2024-04-21 13:54 | US ---
EXAMINATION TYPE: US abdomen complete DATE OF EXAM: 04/21/2024 COMPARISON: NONE CLINICAL INDICATION: Female, 43 years old with history of R10.10 UPPER ABDOMINAL PAIN, UNSPECIFIED; A bdomen pain that has gone away recently TECHNIQUE: Multiple sonographic images of the abdomen are obtained. FINDINGS: EXAM MEASUREMENTS: Liver Length: 16.1 cm CBD: 0.7 cm Spleen: 12.5 cm Right Kidney: 10.2 x 4.6 x 4.6 cm Left Kidney: 11.1 x 4.9 x 4.4 cm Pancreas: obscured by overlying midline bowel gas Liver: course echotexture Gallbladder: surgically absent Evidence for sonographic Cox's sign: no CBD: visualized portions wnl, limited by overlying bowel gas Spleen: wnl Right Kidney: wnl Left Kidney: wnl Upper IVC: wnl Abd Aorta: visualized portions wnl, limited by overlying midline bowel gas IMPRESSION: 1. Cholecystectomy. 2. Evaluation of the pancreas is limited by bowel gas. 3. No other significant abnormality seen.
== END | disposition home or self-care (01) ==
LOC: RADUSWWP 07:35
PROVIDERS: ATTEND Internal Medicine
DX: R14.3 Flatulence (principal)
CPT/HCPCS: 76700

== ENCOUNTER → 2024-10-20 | Outpatient (CLI) | payer OTHER ==
[2024-10-20 09:08] LABS: Appearance,Urine Cloudy (Clear); Bacteria,Urine Occasional /hpf; Bilirubin,Urine Negative (Negative); Blood,Urine Negative (Negative); Color,Urine Yellow; Glucose,Urine (UA) Negative (Negative); Ketones,Urine Negative (Negative); Leukocyte Esterase,Urine Negative (Negative); Mucus,Urine Few /hpf; Nitrite,Urine Negative (Negative); Protein,Urine Trace (Negative); RBC,Urine 1 /hpf (0-5); Specific Gravity,Urine 1.024 (1.001-1.035); Squamous Epithelial Cell,Urine 4 /hpf (0-4); Urobilinogen,Urine <2.0 mg/dL (<2.0); WBC,Urine 2 /hpf (0-5)
[2024-10-20 10:51] LABS: Basophils # (A) 0.04 X 10*3/uL (0.00-0.10); Basophils % (A) 0.5 %; Eosinophils # (A) 0.25 X 10*3/uL (0.04-0.35); HCT 41.6 % (37.2-46.3); HGB 13.6 g/dL (12.0-15.0); Lymphocytes # (A) 1.94 X 10*3/uL (0.90-5.00); Lymphocytes % (A) 23.3 %; MCH 29.4 pg (27.0-32.0); MCHC 32.7 g/dL (32.0-37.0); MCV 89.8 FL (80.0-97.0); NRBC Per 100 WBC 0 X 10*3/uL (0.00-0.01); Neutrophils # (A) 5.59 X 10*3/uL (1.80-7.70); Platelet Count 253 X 10*3/uL (140-440); RBC 4.63 X 10*6/uL (4.10-5.20); RDW 11.9 % (11.5-14.5); WBC 8.34 X 10*3/uL (4.50-10.00)
[2024-10-20 15:33] LABS: ALT 18 U/L (8-44); AST 18 U/L (13-35); Albumin 4.3 g/dL (3.8-4.9); Albumin/Globulin Ratio 1.79 Ratio (1.60-3.17); Alkaline Phosphatase 89 U/L (41-126); BUN/Creat Ratio 19.33 Ratio (12.00-20.00); Blood Urea Nitrogen 17.4 mg/dL (9.0-27.0); Calcium 9.3 mg/dL (8.7-10.3); Carbon Dioxide 23.8 mmol/L (21.6-31.8); Chloride 104 mmol/L (96-109); Chol/HDL Ratio 2.83 Ratio; Globulin 2.4 g/dL (1.6-3.3); Glucose 137 mg/dL (70-110); LDL Cholesterol,Calculated 85.3 mg/dL (0.0-131.0); Magnesium 1.8 mg/dL (1.5-2.4); Potassium 4.4 mmol/L (3.5-5.5); Sodium 138 mmol/L (135-145); Total Bilirubin 0.3 mg/dL (0.3-1.2); Total Protein 6.7 g/dL (6.2-8.2)
[2024-10-20 20:32] LABS: Microalbumin Creatinine Ratio <6 mg/g Cr (0-30)
== END | disposition home or self-care (01) ==
LOC: LABWHC1 07:58
PROVIDERS: ATTEND Internal Medicine
DX: E11.40 Type 2 diabetes mellitus with diabetic neuropathy, unspecified (principal); E55.9 Vitamin D deficiency, unspecified; R32 Unspecified urinary incontinence
CPT/HCPCS: 36415; 80053; 80061; 81001; 82043; 82306; 82570; 83036; 83735; 84443; 85025